=== PATIENT | male | born 1965 | race Caucasian/White ===

== ENCOUNTER 2021-03-28 18:10 | Emergency (ER) | payer MEDICAID ==
[~2021-03-28] VITALS: Ht 167.6 cm; Wt 83.0 kg
[2021-03-28 18:24] VITALS: BP 132/79
[2021-03-29] MEDS ORDERED: IBUP-2029 MT (13:50)
[2021-03-29] MEDS ORDERED: CEPH500C2 MT (13:50)
[2021-03-29] MEDS ORDERED: SULF1TAB48 MT (13:50)
== END 2021-03-29 00:45 | disposition left against medical advice (07) ==
LOC: ER 18:10
DX: Z53.21 Procedure and treatment not carried out due to patient leaving prior to being seen by health care provider (principal)

== ENCOUNTER 2021-03-29 13:28 | Emergency (ER) | payer MEDICAID ==
[~2021-03-29] VITALS: Ht 167.6 cm; Wt 84.0 kg
[2021-03-29] MEDS ORDERED: CEPHALEXIN 250MG CAPSULE PO ONE (13:45)
[2021-03-29] MEDS ORDERED: IBUPROFEN 600MG TABLET PO ONE (13:45)
[2021-03-29] MEDS ORDERED: SULFAMETHOXAZOLE/TRIMETHOPRIM 800/160MG TABLET PO ONE (13:45)
[2021-03-29] MEDS ORDERED: IBUP-2029 MT (13:50)
[2021-03-29] MEDS ORDERED: SULF1TAB48 MT (13:50)
[2021-03-29] MEDS ORDERED: CEPH500C2 MT (13:50)
[2021-03-29 13:54] VITALS: BP 144/88
== END 2021-03-29 13:59 | disposition home or self-care (01) ==
LOC: ER 13:28
DX: L02.511 Cutaneous abscess of right hand (principal)
CPT/HCPCS: 10060; 99284; Z7610

== ENCOUNTER 2021-04-01 14:08 | Emergency (ER) | payer MEDICAID ==
[~2021-04-01] VITALS: Ht 167.6 cm; Wt 83.0 kg
[~2021-04-01 14:08] MED LIST: CEPH500C2 MT; IBUP-2029 MT; SULF1TAB48 MT
[2021-04-01 14:35] VITALS: BP 148/87
== END 2021-04-01 15:09 | disposition home or self-care (01) ==
LOC: ER 14:27
DX: L03.011 Cellulitis of right finger (principal)
CPT/HCPCS: 99283

== ENCOUNTER 2021-04-17 12:03 | Emergency (ER) | payer MEDICAID ==
[~2021-04-17] VITALS: Ht 167.6 cm; Wt 78.0 kg
[2021-04-17 12:27] VITALS: BP 154/92
[2021-04-17] MEDS ORDERED: LIDOCAINE HCL 1% 20ML VIAL (Pyxis) INJ INFIL ONE (15:45)
[2021-04-17] MEDS ORDERED: LIDOCAINE HCL 1% 10 MG/ML 10ML VIAL INJ ONE (16:00)
[2021-04-17] MEDS ORDERED: MUPI15CR11 TP ×2 (16:37)
[2021-04-17] MEDS ORDERED: DOXY100C5 MT (16:37)
== END 2021-04-17 17:10 | disposition home or self-care (01) ==
LOC: ER 12:03
DX: L03.011 Cellulitis of right finger (principal); Z79.899 Other long term (current) drug therapy
CPT/HCPCS: 10060; 99283; J3490; Z7610; 99282

== ENCOUNTER 2023-05-21 11:58 | Emergency (ER) | payer MEDICAID ==
[~2023-05-21] VITALS: Ht 167.6 cm; Wt 81.0 kg
[~2023-05-21 11:58] MED LIST changes: +DOXY100C5 MT; +MUPI15CR11 TP
[2023-05-21 12:06] VITALS: BP 165/110; PULSE 81; RESP 16; TEMP 98; O2SAT 98
[2023-05-21] MEDS ORDERED: LIDOCAINE HCL/PF 1% 10 MG/ML 5ML VIAL INFIL ONE (16:15)
[2023-05-21] MEDS ORDERED: CEPH500T MT (16:43)
[2023-05-21] MEDS ORDERED: SULF1TAB48 MT (16:52)
[2023-05-21] MEDS ORDERED: IBUP-2030 MT (16:52)
[2023-05-21] MEDS ORDERED: BACITRACIN ZINC OINT UDPKT TOP ONE (17:15)
== END 2023-05-21 17:12 | disposition home or self-care (01) ==
LOC: ER 12:16
DX: L03.313 Cellulitis of chest wall (principal); E11.9 Type 2 diabetes mellitus without complications; I10 Essential (primary) hypertension
CPT/HCPCS: 10060; 99283; J3490; Z7610 ×4